=== PATIENT | female | born 1995 | race Caucasian/White ===

== ENCOUNTER 2018-09-18 20:39 | Emergency (ER) | payer SELFPAY ==
[~2018-09-18] VITALS: Ht 162.6 cm; Wt 59.0 kg
[2018-09-18 20:45] VITALS: BP 118/78
--- NOTE | 2018-09-18 20:48 | NUR ---
TO LOBBY A/W BED, VIA W/C
--- NOTE | 2018-09-18 20:58 | NUR ---
PATIENT WHEELCHAIRED TO BED 8
[2018-09-18] MEDS ORDERED: NACL 0.9% 1,000 ML IV ONE (21:10)
[2018-09-18] MEDS ORDERED: ONDANSETRON 4 MG/2 ML VIAL IVP ONE (21:10)
[2018-09-18] MEDS ORDERED: KETOROLAC 30 MG/ML VIAL IVP ONE (21:10)
--- NOTE | 2018-09-18 21:10 | NUR ---
23 YO F BIB FRIEND PRESENTS TO THE ED C/O 03/03 LOWER BACK PAIN/TENDERNESS. PT IS CRYING AND APPEARS TO BE IN SEVERE PAIN. PT IS A POOR HISTORIAN. ACCORDING TO FRIEND, SHE IS ON DAY 2 DETOXING FROM [facility] AND IS IN ACTIVE WITHDRAWAL. PT IS HIGHLY ANXIOUS AND HAS MULTIPLE COMPLAINTS OF DISCOMFORT. MULTIPLE BRUISES NOTED TO UPPER EXTREMETIES FROM "SHOOTING UP". PMH-- DENIES RX-- DENIES POSITIONED FOR COMFORT. HOB ELEVATED. SIDE RAIL UP X2. BED IN LOWEST POSITION. VSS.
--- NOTE | 2018-09-18 21:40 | NUR ---
PT TAKEN TO CT VIA [facility].
[2018-09-18 21:44] LABS: APPEARANCE,URINE HAZY (CLEAR); BILIRUBIN,URINE NEGATIVE (NEGATIVE); BLOOD, URINE NEGATIVE (NEGATIVE); COLOR,URINE YELLOW (YELLOW); NITRITE, URINE NEGATIVE (NEGATIVE); UGLUCOSE NEGATIVE (NEGATIVE)
[2018-09-18 21:48] LABS: LEUKOCYTE ESTERASE ,URINE NEGATIVE (NEGATIVE)
[2018-09-18 21:52] LABS: BARBITURATE, URINE NEG. ng/ml (NEG <=200); BENZODIAZEPINE, URINE NEG. ng/mL (NEG <=200); CANNABINOID, URINE POS. ng/mL (NEG <=50); COCAINE, URINE NEG. ng/mL (NEG <=300); OPIATE, URINE NEG. ng/mL (NEG <=2000); PHENCYCLIDINE SCREEN,URINE NEG. ng/mL (NEG <=25)
[2018-09-18] MEDS ORDERED: MORPHINE SULFATE 4 MG/ML SYR IVP ONE (22:45)
[2018-09-18] MEDS ORDERED: LACTULOSE 20 GM/30 ML UDC PO ONE (22:50)
[2018-09-18 23:07] VITALS: BP 102/61
--- NOTE | 2018-09-18 23:07 | NUR ---
Patient discharged with v/s stable. Written and verbal after care instructions given and explained. Patient alert, oriented and verbalized understanding of instructions. Ambulatory with steady gait. All questions addressed prior to discharge. ID band removed. Patient advised to follow up with PMD. Rx of Lactulose given. Patient educated on indication of medication including possible reaction and side effects. Opportunity to ask questions provided and answered.
== END 2018-09-18 23:07 | disposition home or self-care (01) ==
LOC: MED 20:39
DX: K59.00 Constipation, unspecified (principal); F15.93 Other stimulant use, unspecified with withdrawal
CPT/HCPCS: 74176; 80305; 81003; 81025; 96374; 96375; 99284; J1885; J2405; J7030